=== PATIENT | female | born 1945 | race African-American/Black ===

== ENCOUNTER → 2017-09-20 | Outpatient (CLI) | payer OTHER | LOC: RAD 04:33 | DX: Z12.31 Encounter for screening mammogram for malignant neoplasm of breast (principal) ==

== ENCOUNTER → 2018-09-27 | Outpatient (CLI) | payer OTHER | LOC: RAD 01:04 | DX: Z12.31 Encounter for screening mammogram for malignant neoplasm of breast (principal) ==

== ENCOUNTER → 2019-10-01 | Outpatient (CLI) | payer OTHER | LOC: RAD 09:38 | DX: Z12.31 Encounter for screening mammogram for malignant neoplasm of breast (principal) ==

== ENCOUNTER → 2020-10-01 | Outpatient (CLI) | payer OTHER | LOC: BC 09:22 | DX: Z12.31 Encounter for screening mammogram for malignant neoplasm of breast (principal) ==